=== PATIENT | female | born 1970 | race Caucasian/White ===

== ENCOUNTER 2017-05-25 15:29 | Emergency (ER) | payer OTHER ==
[~2017-05-25] VITALS: Wt 66.0 kg
[2017-05-25] MEDS ORDERED: ONDANSETRON 4 MG INJ IV STA (16:11)
[2017-05-25] MEDS ORDERED: IBUPROFEN 600 MG TAB PO ONE (16:30)
[2017-05-25] MEDS ORDERED: SOD CHLORIDE 0.9% 2,050 ML IV ONE (16:30)
[2017-05-25] MEDS ORDERED: ACETAMINOPHEN 325 MG TAB PO ONE (16:30)
--- NOTE | 2017-05-25 16:48 | RADRPT ---
PROCEDURE: Chest x-ray CLINICAL INDICATION: Shortness of breath TECHNIQUE: Chest single view COMPARISON: None FINDINGS: The heart is normal in size. The pulmonary vessels are normal in caliber. The lungs are clear. Th e costophrenic angles are sharp. The visualized bony thorax is unremarkable. IMPRESSION: No acute cardiopulmonary disease. RPTAT: HH .Uli Warren MD, Date Time Electronically viewed and signed by .Uli Warren MD, MD on 05/25/2017 16:48 .W/
[2017-05-25 16:54] LABS: BASOPHILS % 0.2 % (0.0-2.0); HEMATOCRIT 33.9 % (37.0-47.0); HEMOGLOBIN 10.7 g/dl (12.0-16.0); LYMPHOCYTES # 0.8 10^3/ul (0.8-2.9); LYMPHOCYTES % 6.6 % (15.0-51.0); MEAN CORPUSCULAR HEMOGLOBIN 23.5 pg (29.0-33.0); MEAN CORPUSCULAR HGB CONC 31.6 g/dl (32.0-37.0); MEAN CORPUSCULAR VOLUME 74.5 fl (82.0-101.0); MEAN PLATELET VOLUME 9.9 fl (7.4-10.4); MONOCYTE # 0.5 10^3/ul (0.3-0.9); MONOCYTES % 3.9 % (0.0-11.0); NEUTROPHIL # 10.1 10^3/ul (1.6-7.5); NEUTROPHILS % 88.7 % (39.0-77.0); PLATELET COUNT 285 10^3/UL (140-415); RED BLOOD COUNT 4.55 10^6/ul (4.20-5.40); RED CELL DISTRIBUTION WIDTH 16.7 % (11.5-14.5); WHITE BLOOD COUNT 11.4 10^3/ul (4.8-10.8)
[2017-05-25 17:01] LABS: ADD UMIC NO; UR ASCORBIC ACID NEGATIVE (NEGATIVE); UR BILIRUBIN (Dip) NEGATIVE (NEGATIVE); UR BLOOD (Dip) NEGATIVE (NEGATIVE); UR CLARITY CLEAR (CLEAR); UR COLOR YELLOW (YELLOW); UR GLUCOSE (Dip) 3+ mg/dL (NEGATIVE); UR KETONES (Dip) TRACE mg/dL (NEGATIVE); UR LEUKOCYTE ESTERASE (Dip) NEGATIVE Leu/ul (NEGATIVE); UR NITRITE (Dip) NEGATIVE (NEGATIVE); UR SPECIFIC GRAVITY (Dip) 1.017 (1.003-1.030); UR TOTAL PROTEIN (Dip) NEGATIVE (NEGATIVE); UR UROBILINOGEN (Dip) NEGATIVE (NEGATIVE)
[2017-05-25 17:53] LABS: ALBUMIN/GLOBULIN RATIO 0.9; BILIRUBIN,INDIRECT 0.5 mg/dl (0-1.1); BILIRUBIN,TOTAL 0.5 mg/dl (0.2-1.3); CREATININE 0.7 mg/dl (0.44-1.00); POTASSIUM 3.3 mmol/L (3.5-5.1); TOTAL PROTEIN 8.4 g/dl (6.1-8.1)
--- NOTE | 2017-05-25 18:12 | RADRPT ---
PROCEDURE: CT Abdomen and Pelvis without contrast. CLINICAL INDICATION: Abdominal pain TECHNIQUE: CT scan of the abdomen and pelvis was performed on a multidetector high-resolution CT s canner without intravenous contrast. Coronal and sagittal reformatted images were obtained from the axial source images. Images were reviewed on a high-resolution PACS workstation. The total exam CTD I equals 11mGy and the total exam DLP equals 589mGy-cm. One or more of the following dose reduction techniques were used: Automated exposure control, Adjustment of the mA and/or kV according to patien t size, and/or use of iterative reconstruction technique. COMPARISON: None. FINDINGS: Evaluation of the solid organs is limited given the lack of intravenous contrast administration. The lung bases are clear. Hypoattenuation of the liver. No pancreatic ductal dilatation. Spleen and adrenals are unremarkable. Cholelithiasis without focal pericholecystic inflammatory changes. No hydronephrosis. No renal or ureteral stone. No bowel obstruction. Normal-caliber appendix. Circumferential wall thickening of the colon. Scatt ered colonic diverticulosis. No significant retroperitoneal lymphadenopathy, ascites or evidence of pneumoperitoneum. IMPRESSION: Circumferential wall thickening of the colon can be seen with colitis. Cholelithiasis without focal pericholecystic inflammatory changes. Scattered colonic diverticulosis. No evidence of bowel obstruction or appendicitis. Hepatic steatosis. RPTAT: AA .Kennedy Garcia MD, MD Date Time Electronically viewed and signed by .Kennedy Garcia MD, MD on 05/25/2017 18:11 .T/
[2017-05-25] MEDS ORDERED: CIPROFLOXACIN 400MG/D5W 200 ML IVPB ONE (19:30)
[2017-05-25] MEDS ORDERED: metroNIDAZOLE 500 MG TAB PO ONE (19:30)
[2017-05-25 19:37] VITALS: BP 98/56; PULSE 94; RESP 16; TEMP 99
[2017-05-25] MEDS ORDERED: METR500T PO (20:07)
[2017-05-25] MEDS ORDERED: ACET500C5 PO (20:07)
[2017-05-25] MEDS ORDERED: CIPR500T4 PO (20:07)
--- NOTE | 2017-05-26 00:30 | ERD ---
ER Documentation Chief Complaint Date/Time DATE: 05/26/17 TIME: 00:27 Chief Complaint canales, dizziness, bodyaches, fever HPI 46-year-old female patient with a past medical history of hypertension, diabetes presents to the ED complaining of left sided lower abdominal pain that radiates to her back. Reports that she also has body aches. States it has has been going on for intimately for 1 week. Reports that she has nausea but denies any vomiting or diarrhea. States that she also developed a fever today. Reports that she may have some slight cough at night and states that her nephew is also sick with similar symptoms. Denies any chest pain, wheezing, shortness of breath. ROS All systems reviewed and are negative except as per history of present illness. Medications Home Meds Active Scripts Acetaminophen* (Tylophen*) 500 Mg Capsule, 1 CAP PO Q6H Y for PAIN AND OR ELEVATED TEMP, #20 CAP Prov:SOLANGE ZURITA PA-C 05/25/17 Metronidazole* (Flagyl*) 500 Mg Tablet, 500 MG PO TID for 10 Days, TAB Prov:SOLANGE ZURITA PA-C 05/25/17 Ciprofloxacin Hcl* (Ciprofloxacin Hcl*) 500 Mg Tablet, 500 MG PO BID for 10 Days , TAB Prov:SOLANGE ZURITA PA-C 05/25/17 Allergies Allergies: Coded Allergies: No Known Allergy (Unverified , 05/25/17) PMhx/Soc Medical and Surgical Hx: pt denies Surgical Hx Hx Alcohol Use: No Hx Substance Use: No Hx Tobacco Use: No Smoking Status: Unknown if ever smoked Physical Exam Vitals Vital Signs Date Time Temp Pulse Resp B/P Pulse Ox O2 Delivery O2 Flow Rate FiO2 05/25/17 19:37 99.0 94 16 98/56 98 Room Air 05/25/17 19:11 99.3 95 114/59 97 Room Air 05/25/17 15:34 102.9 135 20 159/82 99 Physical Exam Const: Onj-zso-pwwkspgan, well-nourished. In no acute distress. Head: Atraumatic, normocephalic Eyes: Normal Conjunctiva without injection. No purulent discharge. PERRLA. EOMI ENT: Normal external ear. Ear canal without erythema. Tympanic membrane pearly hoskins without effusion or bulging. Nasal canal clear with normal turbinates. Moist oropharynx without tonsillar exudates. Non-erythematous pharynx. Uvula midline. No drooling. No trismus. Neck: No cervical midline tenderness. Full range of motion. No meningismus. No cervical lymphadenopathy. No JVD. Resp: Clear to auscultation bilaterally. No wheezing, rhonchi, rales, or crackles. No accessory muscle use. No retractions. Cardio: Regular rate and rhythm. No murmurs, rubs or gallops. Abd: Soft, left lower quadrant tenderness, non distended. Normal bowel sounds. No palpable masses. No rebound tenderness. No guarding. Negative McBurney's Point. Negative Del Angel's Sign. Skin: Normal skin turgor. No petechiae or rashes Back: No midline tenderness. No CVA tenderness. Ext: No cyanosis, or edema. Distal pulses intact bilaterally. Neur: Awake and alert. Normal gait. Normal coordination. Cranial Nerves II- VII intact. Normal finger to nose. Muscle strength 5/5. Sensation intact. Psych: Normal Mood and Affect Results 24 hrs Laboratory Tests Test 05/25/17 16:25 05/25/17 16:30 Urine Color YELLOW Urine Clarity CLEAR Urine pH 7.0 Urine Specific [place] 1.017 Urine Ketones TRACEmg/dL Urine Nitrite NEGATIVEmg/dL Urine Bilirubin NEGATIVEmg/dL Urine Urobilinogen NEGATIVEmg/dL Urine Leukocyte Esterase NEGATIVELeu/ul Urine Hemoglobin NEGATIVEmg/dL Urine Glucose 3+mg/dL Urine Total Protein NEGATIVEmg/dl White Blood Count 11.410^3/ul Red Blood Count 4.5510^6/ul Hemoglobin 10.7g/dl Hematocrit 33.9% Mean Corpuscular Volume 74.5fl Mean Corpuscular Hemoglobin 23.5pg Mean Corpuscular Hemoglobin Concent 31.6g/dl Red Cell Distribution Width 16.7% Platelet Count 71519^3/UL Mean Platelet Volume 9.9fl Neutrophils % 88.7% Lymphocytes % 6.6% Monocytes % 3.9% Eosinophils % 0.0% Basophils % 0.2% Nucleated Red Blood Cells % 0.0/100WBC Neutrophils # 10.110^3/ul Lymphocytes # 0.810^3/ul Monocytes # 0.510^3/ul Eosinophils # 0.010^3/ul Basophils # 0.010^3/ul Nucleated Red Blood Cells # 0.010^3/ul Sodium Level 137mmol/L Potassium Level 3.3mmol/L Chloride Level 103mmol/L Carbon Dioxide Level 25mmol/L Anion Gap 12 Blood Urea Nitrogen 7mg/dl Creatinine 0.70mg/dl Glucose Level 119mg/dl Lactic Acid Level 1.0mmol/L Calcium Level 9.0mg/dl Total Bilirubin 0.5mg/dl Direct Bilirubin 0.00mg/dl Indirect Bilirubin 0.5mg/dl Aspartate Amino Transf (AST/SGOT) 27IU/L Alanine Aminotransferase (ALT/SGPT) 28IU/L Alkaline Phosphatase 79IU/L Total Protein 8.4g/dl Albumin 4.0g/dl Globulin 4.40g/dl Albumin/Globulin Ratio 0.90 Lipase 69U/L Current Medications Medications (Trade) Dose Ordered Sig/Juan Carlos Route PRN Reason Start Time Stop Time Status Last Admin Dose Admin Sodium Chloride (NS) 2,050 ml @ 2,050 mls/hr BOLUS X1 ONCE IV 05/25/17 16:30 05/25/17 17:29 DC 05/25/17 16:30 Ibuprofen (Motrin) 600 mg ONCE ONCE PO 05/25/17 16:30 05/25/17 16:33 DC 05/25/17 16:30 Acetaminophen (Tylenol Tab) 650 mg ONCE ONCE PO 05/25/17 16:30 05/25/17 16:33 DC 05/25/17 16:30 Ondansetron HCl (Zofran Inj) 4 mg ONCE STAT IV 05/25/17 16:11 05/25/17 16:13 DC 05/25/17 16:11 Metronidazole 500 mg 500 mg ONCE ONCE PO 05/25/17 19:30 05/25/17 19:31 DC 05/25/17 19:31 Ciprofloxacin/ Dextrose (Cipro Ivpb) 200 ml @ 200 mls/hr ONCE ONCE IVPB 05/25/17 19:30 05/25/17 20:29 DC 05/25/17 19:31 Procedures/MDM 46-year-old female patient with no significant past medical history presents to the ED complaining of headache, body aches, fever, slight cough, abdominal pain that started intermittently for 1 week. Patient is febrile at 102.9. Patient is tachycardic at 135. Patient qualifies for SIRS criteria. Patient was further worked up with CBC, CMP, lipase, UA, lactic acid, influenza swab, chest x-ray, CT of the abdomen and pelvis without contrast. Patient's pain and symptoms have improved after treatment with 30 milliliters/kilogram normal saline, Tylenol, Ibuprofen. CBC: Leukocytosis 11.4. No e/o of systemic infection. Hbg 10.7 Hct 33.9 CMP: No e/o severe acidosis, alkalosis, renal failure, diabetic ketoacidosis, liver disease Lipase within normal limits. Urine: No leukocyte esterase, no nitrites, no hematuria. Urine : Negative Lactic acid 1.0 PROCEDURE: CT Abdomen and Pelvis without contrast. CLINICAL INDICATION: Abdominal pain TECHNIQUE: CT scan of the abdomen and pelvis was performed on a multidetector high-resolution CT scanner without intravenous contrast. Coronal and sagittal reformatted images were obtained from the axial source images. Images were reviewed on a high-resolution PACS workstation. The total exam CTDI equals 11mGy and the total exam DLP equals 589mGy-cm. One or more of the following dose reduction techniques were used: Automated exposure control, Adjustment of the mA and/or kV according to patient size, and/or use of iterative reconstruction technique. COMPARISON: None. FINDINGS: Evaluation of the solid organs is limited given the lack of intravenous contrast administration. The lung bases are clear. Hypoattenuation of the liver. No pancreatic ductal dilatation. Spleen and adrenals are unremarkable. Cholelithiasis without focal pericholecystic inflammatory changes. No hydronephrosis. No renal or ureteral stone. No bowel obstruction. Normal-caliber appendix. Circumferential wall thickening of the colon. Scattered colonic diverticulosis. No significant retroperitoneal lymphadenopathy, ascites or evidence of pneumoperitoneum. IMPRESSION: Circumferential wall thickening of the colon can be seen with colitis. Cholelithiasis without focal pericholecystic inflammatory changes. Scattered colonic diverticulosis. No evidence of bowel obstruction or appendicitis. Hepatic steatosis. PROCEDURE: Chest x-ray CLINICAL INDICATION: Shortness of breath TECHNIQUE: Chest single view COMPARISON: None FINDINGS: The heart is normal in size. The pulmonary vessels are normal in caliber. The lungs are clear. The costophrenic angles are sharp. The visualized bony thorax is unremarkable. IMPRESSION: No acute cardiopulmonary disease. Patient has colitis which could possibly be secondary to bacterial etiology, therefore patient will be treated with 300 mg IV ciprofloxacin, 500 mg metronidazole. Low suspicion for ectopic , ovarian torsion, gastritis , GERD, peptic ulcer disease, cholecystitis, choledocholithiasis, cholangitis, pancreatitis, appendicitis, bowel obstruction, ileus, volvulus, nephrolithiasis , pyelonephritis, hepatitis, perforated viscus, diverticulitis, strangulated/ incarcerated hernia, DKA, acute abdomen, mesenteric ischemia, pneumonia, urinary tract infection, pyelonephritis, sepsis or other emergent conditions. Case was discussed with my supervising physician, Dr. Almanzar who agreed with the management and discharge plan. Discharge medications: Tylenol, Flagyl, Ciprofloxacin Follow up with primary care physician in 1-2 days. Instructed patient to return to the ED sooner for any worsening symptoms. Patient's questions were answered. Patient understood and agreed with discharge plan. Patient discharged stable. Departure Diagnosis: Primary Impression: Colitis Additional Impression: Fever Fever type: unspecified Qualified Code: R50.9 - Fever, unspecified fever cause Condition: Stable Patient Instructions: Understanding Diverticulosis and Diverticulitis Referrals: [facility] YOU HAVE RECEIVED A MEDICAL SCREENING EXAM AND THE RESULTS INDICATE THAT YOU DO NOT HAVE A CONDITION THAT REQUIRES URGENT TREATMENT IN THE EMERGENCY DEPARTMENT. FURTHER EVALUATION AND TREATMENT OF YOUR CONDITION CAN WAIT UNTIL YOU ARE SEEN IN YOUR DOCTORS OFFICE WITHIN THE NEXT 1-2 DAYS. IT IS YOUR RESPONSIBILITY TO MAKE AN APPOINTMENT FOR FOLOW-UP CARE. IF YOU HAVE A PRIMARY DOCTOR --you should call your primary doctor and schedule an appointment IF YOU DO NOT HAVE A PRIMARY DOCTOR YOU CAN CALL OUR PHYSICIAN REFERRAL HOTLINE AT IF YOU CAN NOT AFFORD TO SEE A PHYSICIAN YOU CAN CHOSE FROM THE FOLLOWING [facility] [employer] [address] [facility]. [facility] [address] [facility] [facility] [address] [facility] [facility] [address] [facility] [facility] [address] [facility]. [facility]. [address] [facility]. [facility] YOU HAVE RECEIVED A MEDICAL SCREENING EXAM AND THE RESULTS INDICATE THAT YOU DO NOT HAVE A CONDITION THAT REQUIRES URGENT TREATMENT IN THE EMERGENCY DEPARTMENT. FURTHER EVALUATION AND TREATMENT OF YOUR CONDITION CAN WAIT UNTIL YOU ARE SEEN IN YOUR DOCTORS OFFICE WITHIN THE NEXT 1-2 DAYS. IT IS YOUR RESPONSIBILITY TO MAKE AN APPOINTMENT FOR FOLOW-UP CARE. IF YOU HAVE A PRIMARY DOCTOR --you should call your primary doctor and schedule and appointment IF YOU DO NOT HAVE A PRIMARY DOCTOR YOU CAN CALL OUR PHYSICIAN REFERRAL HOTLINE AT . IF YOU CAN NOT AFFORD TO SEE A PHYSICIAN YOU CAN CHOSE FROM THE FOLLOWING [facility] INSTITUTIONS: [facility] [address] [place] [address] [facility] [address] [place] [address] [facility] [address] [place] [address] [facility] Additional Instructions: Llame al doctor MAANA y jay ladonna KYRA PARA DENTRO DE 2-3 CONKLIN.Dgale a la secretaria que nosotros le instruimos hacer esta kyra.Avise o llame si celeste condicin se empeora antes de la kyra. Regresa aqui si peor o no mejor. SOLANGE ZURITA PA-C May 26, 2017 00:30 SOLANGE ZURITA PA-C May 26, 2017 00:30
== END 2017-05-25 20:36 | disposition home or self-care (01) ==
LOC: FTE 15:29
DX: K52.9 Noninfective gastroenteritis and colitis, unspecified (principal); I10 Essential (primary) hypertension; E11.9 Type 2 diabetes mellitus without complications
CPT/HCPCS: 36415; 71010; 74176; 80053; 81003; 83605; 83690; 85025; 87040; 87086; 87400; 96374; 96375; J2405; J7030; Z7502; Z7610